=== PATIENT | male | born 1990 | race Caucasian/White ===

== ENCOUNTER 2017-01-24 00:42 | Emergency (ER) | payer SELFPAY ==
[~2017-01-24 00:42] MED LIST: ONDA4TAB10 PO; ONDA4TAB10 SL
--- NOTE | 2017-01-24 00:44 | ED.ADGEN ---
Past History Past Medical History: No Pertinent History Past Surgical History: Other Smoking: Cigarettes Alcohol Use: Occasionally Drug Use: None Adult General Chief Complaint Chief Complaint Headache, nausea abdominal pain HPI HPI Patient is a 26 year old male who presents with headache started around 5:00 this afternoon is throbbing sensation in the anterior aspect of his scalp. He stated feeling nauseated and started vomiting. He denies any blood in his vomit. Denies any diarrhea. He had a syncopal episode when he tried to get up too quickly after his vomiting and fell striking his head on the floor. He denies any hurting his head or his neck. He denies any fevers or chills or neck stiffness. States he's never had a headache before. The girlfriend was in the next room when he had a syncopal episode and states she opened the door and he instantly was unresponsive. Review of Systems Review of Systems Constitutional: Denies fever or chills [] Eyes: Denies change in visual acuity, redness, or eye pain [] HENT: Denies nasal congestion or sore throat [] Respiratory: Denies cough or shortness of breath [] Cardiovascular: No additional information not addressed in HPI [] GI: Denies bloody stools or diarrhea, positive for abdominal pain, nausea, vomiting, : Denies dysuria or hematuria [] Musculoskeletal: Denies back pain or joint pain [] Integument: Denies rash or skin lesions [] Neurologic: Denies focal weakness or sensory changes, positive for headache,[] Endocrine: Denies polyuria or polydipsia [] Current Medications Current Medications Current Medications Medications (Trade) Dose Ordered Sig/[facility] Start Time Stop Time Status Last Admin Dose Admin Info (Do NOT chart on this entry -- for MONITORING) 1 each PRN DAILY PRN 01/24/17 02:15 01/24/17 06:41 DC Iohexol (Omnipaque 240 Mg/ml) 50 ml STK-MED ONCE 01/24/17 01:31 01/24/17 01:32 DC Iohexol (Omnipaque 300 Mg/ml) 75 ml 1X ONCE 01/24/17 02:15 01/24/17 02:16 DC 01/24/17 02:15 75 ML Ketorolac Tromethamine (Toradol) 60 mg 1X ONCE 01/24/17 06:15 01/24/17 06:21 DC 01/24/17 06:15 60 MG Lorazepam (Ativan) 1 mg 1X ONCE 01/24/17 03:45 01/24/17 03:51 DC 01/24/17 03:45 1 MG Morphine Sulfate (Morphine 2mg Syringe) 2 mg PRN Q15MIN PRN 01/24/17 02:45 01/24/17 06:41 DC 01/24/17 02:45 2 MG Ondansetron HCl (Zofran) 4 mg 1X ONCE 01/24/17 01:15 01/24/17 01:16 DC 01/24/17 01:15 4 MG Sodium Chloride 1,000 ml @ 1,000 mls/hr 1X ONCE 01/24/17 03:30 01/24/17 04:29 DC 01/24/17 03:30 1,000 MLS/HR Allergies Allergies Allergies Coded Allergies Type Severity Reaction Last Updated Verified No Known Drug Allergies 03/27/16 No Physical Exam Physical Exam Constitutional: Well developed, well nourished, no acute distress, non-toxic appearance. [] HENT: Normocephalic, atraumatic, bilateral external ears normal, oropharynx moist, no oral exudates, nose normal. [] Eyes: PERRLA, EOMI, conjunctiva normal, no discharge. [] Neck: Normal range of motion, no tenderness, supple, no stridor. [] Cardiovascular:Heart rate regular rhythm, no murmur [] Lungs & Thorax: Bilateral breath sounds clear to auscultation [] Abdomen: Bowel sounds normal, soft, no tenderness, no masses, no pulsatile masses. [] Skin: Warm, dry, no erythema, no rash. [] Back: No tenderness, no CVA tenderness. [] Extremities: No tenderness, no cyanosis, no clubbing, ROM intact, no edema. [] Neurologic: Alert and oriented X 3, normal motor function, normal sensory function, no focal deficits noted. [] Psychologic: Affect normal, judgement normal, mood normal. [] Current Patient Data Vital Signs Vital Signs Date Time Temp Pulse Resp B/P (MAP) Pulse Ox O2 Delivery O2 Flow Rate FiO2 01/24/17 06:20 99.1 93 18 140/59 (86) 97 Room Air Lab Results Laboratory Tests Test 5/10/17 02:00 White Blood Count 8.1 x10^3/uL (4.0-11.0) Red Blood Count 4.21 x10^6/uL (4.30-5.70) L Hemoglobin 13.1 g/dL (13.0-17.5) Hematocrit 37.7 % (39.0-53.0) L Mean Corpuscular Volume 90 fL (79-100) Mean Corpuscular Hemoglobin 31 pg (25-35) Mean Corpuscular Hemoglobin Concent 35 g/dL (31-37) Red Cell Distribution Width 12.6 % (11.5-14.5) Platelet Count 223 x10^3/uL (140-400) Neutrophils (%) (Auto) 58 % (31-73) Lymphocytes (%) (Auto) 29 % (24-48) Monocytes (%) (Auto) 13 % (0-9) H Eosinophils (%) (Auto) 1 % (0-3) Basophils (%) (Auto) 0 % (0-3) Neutrophils # (Auto) 4.7 x10^3uL (1.8-7.7) Lymphocytes # (Auto) 2.3 x10^3/uL (1.0-4.8) Monocytes # (Auto) 1.0 x10^3/uL (0.0-1.1) Eosinophils # (Auto) 0.1 x10^3/uL (0.0-0.7) Basophils # (Auto) 0.0 x10^3/uL (0.0-0.2) Urine Collection Type Unknown Urine Color Yellow Urine Clarity Clear Urine pH 7.5 Urine Specific [place] 1.020 Urine Protein 30 mg/dl (NEG-TRACE) Urine Glucose (UA) Neg mg/dL (NEG) Urine Ketones (Stick) Neg mg/dL (NEG) Urine Blood Neg (NEG) Urine Nitrite Neg (NEG) Urine Bilirubin Neg (NEG) Urine Urobilinogen Dipstick 0.2 mg/dL (0.2 mg/dL) Urine Leukocyte Esterase Neg (NEG) Urine RBC 0 /HPF (0-2) Urine WBC Occ /HPF (0-4) Urine Squamous Epithelial Cells Few /LPF Urine Bacteria Few /HPF (0-FEW) Sodium Level 138 mmol/L (136-145) Potassium Level 3.2 mmol/L (3.5-5.1) L Chloride Level 102 mmol/L (98-107) Carbon Dioxide Level 26 mmol/L (21-32) Anion Gap 10 (6-14) Blood Urea Nitrogen 8 mg/dL (8-26) Creatinine 1.0 mg/dL (0.7-1.3) Estimated GFR (Cockcroft-Gault) 91.8 Glucose Level 89 mg/dL (70-99) Calcium Level 8.2 mg/dL (8.5-10.1) L Total Bilirubin 0.3 mg/dL (0.2-1.0) Direct Bilirubin 0.1 mg/dL (0.0-0.2) Aspartate Amino Transferase (AST) 11 U/L (15-37) L Alanine Aminotransferase (ALT) 16 U/L (16-63) Alkaline Phosphatase 80 U/L (46-116) Creatine Kinase 100 U/L (39-308) Total Protein 7.3 g/dL (6.4-8.2) Albumin 4.0 g/dL (3.4-5.0) Lipase 68 U/L (73-393) L Urine Opiates Screen Neg (NEG) Urine Methadone Screen Neg (NEG) Urine Barbiturates Neg (NEG) Urine Phencyclidine Screen Neg (NEG) Urine Amphetamine/Methamphetamine Neg (NEG) Urine Benzodiazepines Screen Neg (NEG) Urine Cocaine Screen Pos (NEG) Urine Cannabinoids Screen Pos (NEG) Urine Ethyl Alcohol Neg (NEG) EKG EKG EKG shows sinus tach with [address] elevations or T-wave inversions , normal axis, QTC 416 ms, as interpreted by me. Radiology/Procedures Radiology/Procedures [address] [address] IMAGING REPORT Signed PATIENT: ANKUR LOREDO ACCOUNT: [id number] : 1990 LOCATION: ER AGE: 26 SEX: M EXAM STATUS: REG ER ORD. PHYSICIAN: DANA SUBRAMANIAN MD REASON: new onset headache PROCEDURE: CT HEAD AND CERVICAL SPINE WO PROCEDURE CT head and cervical spine without contrast. HISTORY Severe frontal headache with light sensitivity and dizziness. Fainted twice. COMPARISON No comparison. TECHNIQUE Helical CT imaging of the brain and of the cervical spine is performed without IV contrast. PQRS: One or more the following individualized dose reduction techniques were utilized for the study: 1. Automated exposure control. 2. Adjustment of the mA and/or kV according to patient size. 3. Use of iterative reconstruction technique. FINDINGS No acute calvarial fracture. Visualized globes and orbits are intact. The mastoid air cells are clear. Small mucous retention cyst or polyp anterior right ethmoid sinus and left maxillary sinus. No air-fluid level. No midline shift or mass effect. No extra-axial fluid collection or intraparenchymal hemorrhage. Awad-white matter differentiation is preserved. Basilar cisterns are patent. Ventricles and sulci are normal for patient age. No acute fracture or subluxation of the cervical spine. Disc spaces are maintained. Facet joints and spinous processes are intact. Straightening of normal cervical lordosis may be positional or due to muscle spasm. Visualized lung apices are clear. Borderline enlarged cervical lymph nodes may be reactive. Left submandibular gland is not identified. IMPRESSION No acute intracranial abnormality. No acute fracture or subluxation of the cervical spine. Electronically signed by: Jeovanny Johns MD (January 24, 2017 01:23:57) DICTATED AND SIGNED BY: JEOVANNY JOHNS MD DATE: 01/24/17122 CC: DANA SUBRAMANIAN MD; PCP,NO ~ [place] [address] IMAGING REPORT Signed PATIENT: ANKUR LOREDO ACCOUNT: [id number] : 1990 LOCATION: ER AGE: 26 SEX: M EXAM STATUS: REG ER ORD. PHYSICIAN: DANA SUBRAMANIAN MD REASON: abd pain PROCEDURE: CT ABD PELV W/ORAL&IV CONTRAST PROCEDURE CT abdomen pelvis with contrast. HISTORY Abdominal pain with nausea and vomiting. TECHNIQUE Helical CT imaging of the abdomen and pelvis is performed after 75 cc Omnipaque 300 IV contrast and oral contrast. PQRS: One or more the following individualized dose reduction techniques were utilized for the study: 1. Automated exposure control. 2. Adjustment of the mA and/or kV according to patient size. 3. Use of iterative reconstruction technique. COMPARISON None. FINDINGS Minimal dependent atelectasis right lower lobe. 4 millimeter nodule right middle lobe. Cardiac size normal. Calcification in the left hepatic lobe may be a calcified granuloma. Liver otherwise homogeneous. The gallbladder, spleen, pancreas, adrenal glands, and abdominal aortic caliber are normal. Kidneys enhance symmetrically. There is mild left hydroureteronephrosis. The left ureter is prominent all the way to the ureterovesicular junction. An obstructing process is not seen. There may be a small intravesical ureterocele, coronal image 36. Urinary bladder is normal. No renal, ureteral, or bladder calculus. There are subcentimeter retroperitoneal lymph nodes. Stomach unremarkable. There is no dilated small bowel. There is no colon wall thickening. No secondary signs of appendicitis. The prostate and seminal vesicles are normal. No pelvic free fluid. Inguinal lymph nodes may be reactive. No acute bone abnormality. IMPRESSION 1. No bowel obstruction or evidence of enterocolitis. 2. Mild left hydroureteronephrosis. No obstructing process is seen. There may be a small ureterocele. Electronically signed by: Jeovanny Johns MD (January 24, 2017 03:15:21) DICTATED AND SIGNED BY: JEOVANNY JOHNS MD DATE: 01/24/17314 CC: DANA SUBRAMANIAN MD; PCP,NO ~ Course & Med Decision Making Course & Med Decision Making Pertinent Labs and Imaging studies reviewed. (See chart for details) States he used cocaine last weekend. His headache has improved however he feels lives with about a 7 out of 10. Still the frontal aspect of his head. He received 2 L of fluids, morphine, Ativan and states he feels better but the headache is still there. CT of his head, abdomen pelvis and labs are all nonacute. Patient is being discharged home with Phenergan, Benadryl and instructed to follow-up with primary care physician. He instructed redeveloped fevers, neck stiffness, other concerns return back to ER. Final Impression Final Impression Headache Abdominal pain-resolved Cocaine abuse Problems: Dragon Disclaimer Dragon Disclaimer This electronic medical record was generated, in whole or in part, using a voice recognition dictation system. DANA SUBRAMANIAN MD January 24, 2017 00:44
[2017-01-24] MEDS ORDERED: IV NORMAL SALINE 1,000ML 1,000 ML IV SCH (01:15)
[2017-01-24] MEDS ORDERED: ONDANSETRON PF 4 MG/2 ML VIAL. IV ONE (01:15)
--- NOTE | 2017-01-24 01:25 | RAD ---
PROCEDURE CT head and cervical spine without contrast. HISTORY Severe frontal headache with light sensitivity and dizziness. Fainted twice. COMPARISON No comparison. TECHNIQUE Helical CT imaging of the brain and of the cervical spine is performed without IV contrast. PQRS: One or more the following individualized dose reduction techniques were utilized for the study: 1. Automated exposure control. 2. Adjustment of the mA and/or kV according to patient size. 3. Use of iterative reconstruction technique. FINDINGS No acute calvarial fracture. Visualized globes and orbits are intact. The mastoid air cells are clear. Small mucous retention cyst or polyp anterior right ethmoid sinus and left maxillary sinus. No air-fluid level. No midline shift or mass effect. No extra-axial fluid collection or intraparenchymal hemorrhage. Awad-white matter differentiation is preserved. Basilar cisterns are patent. Ventricles and sulci are normal for patient age. No acute fracture or subluxation of the cervical spine. Disc spaces are maintained. Facet joints and spinous processes are intact. Straightening of normal cervical lordosis may be positional or due to muscle spasm. Visualized lung apices are clear. Borderline enlarged cervical lymph nodes may be reactive. Left submandibular gland is not identified. IMPRESSION No acute intracranial abnormality. No acute fracture or subluxation of the cervical spine. Electronically signed by: Juan C Johns MD (January 24, 2017 01:23:57)
[2017-01-24] MEDS ORDERED: IOHEXOL 240 MG/ML 50ML VIAL. ONE (01:31)
--- NOTE | 2017-01-24 01:49 | EKG ---
[address] [address] Test Date: 2017-01-24 Test Time: 00:55:38 Pat Name: ANKUR LOREDO Department: Room: Gender: M Entry Level Software Engineer: : 1990 Requested By: DANA SUBRAMANIAN Order Number: [id number] Reading MD: Angelo Lee Measurements Intervals [place] Rate: 100 P: 22 TX: 126 QRS: 43 QRSD: 106 T: 47 QT: 320 QTc: 416 Interpretive Statements SINUS RHYTHM Electronically Signed On 01-29-2017 9:14:50 CDT by Angelo Lee
[2017-01-24] MEDS ORDERED: CONTRAST GIVEN MC PRN (02:15)
[2017-01-24] MEDS ORDERED: IOHEXOL 300 MG/ML 75 ML VIAL. IV ONE (02:15)
[2017-01-24 02:19] LABS: BASO % 0 % (0-3); EOS # 0.1 x10^3/uL (0.0-0.7); EOS % 1 % (0-3); HEMATOCRIT 37.7 % (39.0-53.0); HEMOGLOBIN 13.1 g/dL (13.0-17.5); LYMPH # 2.3 x10^3/uL (1.0-4.8); LYMPH % 29 % (24-48); MEAN CORPUSCULAR HEMOGLOBIN 31 pg (25-35); MEAN CORPUSCULAR HGB CONC 35 g/dL (31-37); MEAN CORPUSCULAR VOLUME 90 fL (79-100); MONO % 13 % (0-9); NEUT # 4.7 x10^3uL (1.8-7.7); NEUT % 58 % (31-73); PLATELET COUNT 223 x10^3/uL (140-400); RED BLOOD COUNT 4.21 x10^6/uL (4.30-5.70); RED CELL DISTRIBUTION WIDTH 12.6 % (11.5-14.5); WHITE BLOOD COUNT 8.1 x10^3/uL (4.0-11.0)
[2017-01-24 02:32] LABS: BACTERIA,URINE FEW /HPF (0-FEW); BILIRUBIN,URINE NEG (NEG); CLARITY,URINE CLEAR; COLOR,URINE YELLOW; GLUCOSE,URINE NEG (NEG); NITRITE,URINE NEG (NEG); RBC,URINE 0 /HPF (0-2); SQUAMOUS EPITHELIAL CELL,UR FEW /LPF; UROBILINOGEN,URINE 0.2 mg/dL (0.2 mg/dL); WBC,URINE OCC /HPF (0-4)
[2017-01-24 02:33] LABS: BARBITURATES NEG (NEG); BENZODIAZEPINES NEG (NEG); CANNABINOIDS POS (NEG); COCAINE POS (NEG); METHADONE NEG (NEG); OPIATES NEG (NEG); PHENCYCLIDINE NEG (NEG)
[2017-01-24 02:36] LABS: CALCIUM 8.2 mg/dL (8.5-10.1); DIRECT BILIRUBIN 0.1 mg/dL (0.0-0.2); GFR 91.8; POTASSIUM 3.2 mmol/L (3.5-5.1); TOTAL BILIRUBIN 0.3 mg/dL (0.2-1.0); TOTAL PROTEIN 7.3 g/dL (6.4-8.2)
[2017-01-24 02:38] LABS: AMPHETAMINE/METHAMPHETAMINE NEG (NEG)
[2017-01-24] MEDS ORDERED: MORPHINE SULFATE 2 MG/ML DISP.SYRIN. IV/SQ PRN (02:45)
--- NOTE | 2017-01-24 03:16 | RAD ---
PROCEDURE CT abdomen pelvis with contrast. HISTORY Abdominal pain with nausea and vomiting. TECHNIQUE Helical CT imaging of the abdomen and pelvis is performed after 75 cc Omnipaque 300 IV contrast and oral contrast. PQRS: One or more the following individualized dose reduction techniques were utilized for the study: 1. Automated exposure control. 2. Adjustment of the mA and/or kV according to patient size. 3. Use of iterative reconstruction technique. COMPARISON None. FINDINGS Minimal dependent atelectasis right lower lobe. 4 millimeter nodule right middle lobe. Cardiac size normal. Calcification in the left hepatic lobe may be a calcified granuloma. Liver otherwise homogeneous. The gallbladder, spleen, pancreas, adrenal glands, and abdominal aortic caliber are normal. Kidneys enhance symmetrically. There is mild left hydroureteronephrosis. The left ureter is prominent all the way to the ureterovesicular junction. An obstructing process is not seen. There may be a small intravesical ureterocele, coronal image 36. Urinary bladder is normal. No renal, ureteral, or bladder calculus. There are subcentimeter retroperitoneal lymph nodes. Stomach unremarkable. There is no dilated small bowel. There is no colon wall thickening. No secondary signs of appendicitis. The prostate and seminal vesicles are normal. No pelvic free fluid. Inguinal lymph nodes may be reactive. No acute bone abnormality. IMPRESSION 1. No bowel obstruction or evidence of enterocolitis. 2. Mild left hydroureteronephrosis. No obstructing process is seen. There may be a small ureterocele. Electronically signed by: Juan C Johns MD (January 24, 2017 03:15:21)
[2017-01-24] MEDS ORDERED: IV NORMAL SALINE 1,000ML 1,000 ML IV ONE (03:30)
[2017-01-24] MEDS ORDERED: LORazepam 2 MG/ML VIAL IV ONE (03:45)
[2017-01-24] MEDS ORDERED: KETOROLAC 60 MG/2 ML VIAL. IM ONE (06:15)
[2017-01-24 06:20] VITALS: BP 140/59
== END 2017-01-24 06:20 | disposition home or self-care (01) ==
LOC: ER 00:48
DX: R51 Headache (principal); R11.2 Nausea with vomiting, unspecified; F14.10 Cocaine abuse, uncomplicated; F17.210 Nicotine dependence, cigarettes, uncomplicated
CPT/HCPCS: 36415; 70450; 72125; 74177; 80048; 80076; 80305; 81001; 82550; 83690; 85027; 93005; 96361; 96372; 96374; 96375; 99285; J1885; J2060; J2270; J2405; Q9967; G0481; J7030